=== PATIENT | female | born 1965 | race Caucasian/White ===

== ENCOUNTER 2018-01-20 12:19 | Day surgery (SDC) | payer OTHER ==
[2018-01-20] MEDS ORDERED: MIDAZOLAM 1 MG/ML 2 ML INJ (13:39)
[2018-01-20] MEDS ORDERED: PROPOFOL 20 ML (13:39)
[2018-01-20] MEDS ORDERED: ROCURONIUM 50 MG INJ (13:39)
[2018-01-20] MEDS ORDERED: FENTAnyl 50 MCG/ML VIAL (13:39)
[2018-01-20] MEDS ORDERED: CEFAZOLIN 1 GM INJ ×2 (13:39→16:55)
[2018-01-20] MEDS ORDERED: LIDOCAINE 1%/EPI 30 ML INJ (13:41)
[2018-01-20] MEDS ORDERED: METOCLOPRAMIDE 10 MG INJ IV (16:30)
[2018-01-20] MEDS ORDERED: IPRATROPIUM (NEB) 0.5 MG/2.5 ML AMP HHN (16:30)
[2018-01-20] MEDS ORDERED: ALBUTEROL 0.083% (NEB) 2.5 MG/3 ML AMP HHN (16:30)
[2018-01-20] MEDS ORDERED: FENTAnyl 50 MCG/ML VIAL IV ×3 (16:30)
[2018-01-20] MEDS ORDERED: EPHEDrine SULFATE 50 MG/5 ML SYG IV (16:30)
[2018-01-20] MEDS ORDERED: OXYCODONE/ACETAMINOPHEN (5/325) TAB PO (16:30)
[2018-01-20] MEDS ORDERED: HYDROmorphONE 1 MG/5 ML IV SYRINGE IV ×3 (16:30)
[2018-01-20] MEDS ORDERED: LABETALOL HCL 20MG INJ IV (16:30)
[2018-01-20] MEDS ORDERED: DIPHENHYDRAMINE 50 MG INJ IV (16:30)
[2018-01-20] MEDS ORDERED: MEPERIDINE 25 MG INJ IV (16:30)
[2018-01-20] MEDS ORDERED: ACETAMINOPHEN 1000MG/100ML IV 100 ML (17:14)
[2018-01-20] MEDS ORDERED: ONDANSETRON 4 MG INJ (17:14)
[2018-01-20] MEDS ORDERED: METOCLOPRAMIDE 10 MG INJ (17:14)
[2018-01-20] MEDS ORDERED: DEXAMETHASONE 4 MG/ML 1 ML INJ (17:14)
[2018-01-20] MEDS ORDERED: PHENYLephrine (100 MCG/ML) 5ML SYG (17:14)
[2018-01-20] MEDS: LIDOCAINE 1%/EPI (MDV) 50 ML INJ INJ (18:16)
[2018-01-20] MEDS: hydrALAzine 20 MG INJ IV (18:35)
[2018-01-20] MEDS: ONDANSETRON 4 MG INJ IV (18:35)
[2018-01-20] MEDS: OXYCODONE/ACETAMINOPHEN (5/325) TAB PO (18:42)
== END 2018-01-20 19:24 | disposition home or self-care (01) ==
LOC: SDS 12:19
DX: E21.0 Primary hyperparathyroidism (principal); I10 Essential (primary) hypertension
CPT/HCPCS: 60500; 88307; 88331